=== PATIENT | female | born 1975 | race Caucasian/White ===

== ENCOUNTER → 2016-09-28 | Outpatient (CLI) | payer OTHER ==
[~2016-09-28] MED LIST: BACTRIM DS 8001 TA1 PO; BACTRIM DS 8001 TAB PO; BACTROBAN CREAM15 GM PO; BACTROBAN CREAM15 GM T; Bactroban Oint22 GM T; CEPHALEXIN500 M1 PO; CLEOCIN150 MG PO; CLINDAMYCIN HC300 MG PO; CYCLOBENZAPRINE10 MG PO; DIFLUCAN150 MG PO; FLUCONAZOLE150 MG PO; HYDROCODONE BIT1 T11 PO; LEVEMIR FLEX100 U/ML SC; LEVEMIR10 ML SC; LEVOTHYROXINE0.05 M1 PO; METFORMIN HCL1000 MG PO; Motrin,Rufen800 MG PO; NOVOLOG FLEX100 U/ML SC; NOVOLOG MI100 UNIT/2 SQ; Oscal,Oyster S500 MG PO; PERCOCET 325 MG1 TA2 PO; PROTONIX40 MG PO; SIMVASTATIN20 MG PO; ULTRAM50 MG PO; ZOFRAN4 MG PO
[2016-09-28 10:42] LABS: BILIRUBIN 2+ (NEGATIVE); BLOOD NEGATIVE (NEGATIVE); CLARITY CLOUDY (CLEAR); COLOR YELLOW (YELLOW); GLUCOSE 1+ (NEGATIVE); KETONE 1+ (NEGATIVE); LEUKO ESTERASE NEGATIVE (NEGATIVE); NITRITE NEGATIVE (NEGATIVE); PH 5.5 (5.0-9.0); PROTEIN 2+ (NEGATIVE); SPECIFIC GRAVITY >= 1.030 (1.005-1.030)
[2016-09-28 10:52] LABS: BACTERIA 1+; EPITHELIAL CELLS TNTC
[2016-09-28 11:11] LABS: ALKALINE PHOSPHATASE 69 U/L (45-117); BILIRUBIN, DIRECT 0.2 mg/dL (0.0-0.2); BILIRUBIN, TOTAL 1.2 mg/dl (0.2-1.0); BUN 10 mg/dl (7-24); CARBON DIOXIDE 28 mmol/L (21-32); CHLORIDE 101 mmol/L (98-107); CHOLESTEROL 227 mg/dL (<200); EST GLOM FILT AFRICAN AMERICAN > 60 ml/min; GLUCOSE 312 mg/dL (65-99); HDL CHOLESTEROL 41 mg/dl (40-60); LDL CHOLESTEROL 137 mg/dL (9-159); POTASSIUM 4.1 mmol/L (3.5-5.1); SGOT/AST 9 IU/L (3-35); SGPT/ALT 20 U/L (12-78); SODIUM 139 mmol/L (136-145); TOTAL PROTEIN 7.9 gm/dL (6.4-8.2); TRIGLYCERIDES 245 mg/dl (<150); VLDL CHOLESTEROL 49 mg/dL (6-40)
[2016-09-28 11:16] LABS: VITAMIN D, 25-HYDROXY 28.6 ng/mL (30-100)
[2016-09-28 11:25] LABS: HEMOGLOBIN A1c 9.1 % (4.8-5.6)
[2016-09-28 13:43] LABS: BASO % 0.2 % (0.0-1.0); EOS % 0.2 % (1.0-4.0); HEMATOCRIT 41.2 % (37.0-47.0); HEMOGLOBIN 14.8 g/dl (12.0-16.0); LYMPH % 43.3 % (27.0-41.0); MEAN CELL VOLUME 86.4 fl (81.0-99.0); MEAN CORPUSCULAR HGB CONC 35.9 g/dl (33.0-37.0); MONO # 0.3 10*3/uL (0.1-1.0); MONO % 7.1 % (3.0-9.0); NEUT # 2.3 10*3/uL (2.3-7.9); NEUT % 49.2 % (47.0-73.0); PLATELET COUNT AUTOMATED 287 10*3/uL (130-400); RED BLOOD COUNT 4.77 10*6/uL (4.10-5.10); RED CELL DISTRI WIDTH 12.4 % (0-14.5); WHITE BLOOD COUNT 4.7 10*3/uL (4.8-10.8)
[2016-09-28 14:16] LABS: ALBUMIN 4.1 gm/dl (3.1-4.5); ALKALINE PHOSPHATASE 70 U/L (45-117); BILIRUBIN, TOTAL 1.2 mg/dl (0.2-1.0); BUN 12 mg/dl (7-24); CARBON DIOXIDE 29 mmol/L (21-32); CHLORIDE 100 mmol/L (98-107); EST GLOM FILT AFRICAN AMERICAN > 60 ml/min; GLUCOSE 311 mg/dL (65-99); SGOT/AST 14 IU/L (3-35); SGPT/ALT 25 U/L (12-78); SODIUM 136 mmol/L (136-145)
[2016-09-29 08:12] LABS: HIV 1+2 AB + HIV1 P24 AG Non Reactive (Non Reactive)
== END | disposition home or self-care (01) ==
LOC: LAB 10:18
PROVIDERS: Internal Medicine
DX: E11.65 Type 2 diabetes mellitus with hyperglycemia (principal); E10.42 Type 1 diabetes mellitus with diabetic polyneuropathy; E78.5 Hyperlipidemia, unspecified; E03.9 Hypothyroidism, unspecified; E55.9 Vitamin D deficiency, unspecified

== ENCOUNTER → 2016-10-05 | Outpatient (CLI) | payer OTHER ==
[2016-10-06 18:09] LABS: HEPATITIS C QUANTITATION HCV Not Detected IU/mL (.)
== END | disposition home or self-care (01) ==
LOC: LAB 16:15
PROVIDERS: Obstetrics & Gynecology
DX: R76.8 Other specified abnormal immunological findings in serum (principal)

== ENCOUNTER 2016-11-14 08:26 | Emergency (ER) | payer OTHER | END 2016-11-14 08:49 | disposition left against medical advice (07) | LOC: ED 08:26 | DX: R30.0 Dysuria (principal); Z53.21 Procedure and treatment not carried out due to patient leaving prior to being seen by health care provider; Z98.890 Other specified postprocedural states; Z79.899 Other long term (current) drug therapy; Z91.040 Latex allergy status ==

== ENCOUNTER → 2019-01-03 | Outpatient (CLI) | payer OTHER ==
[~2019-01-03] MED LIST changes: +ATIVAN1 MG PO; +B-12500 MC1 PO; +CHLORZOXAZONE500 M2 PO; +CLINDAMYCIN150 MG PO; +DULOXETINE HCL30 MG PO; +GLUCOPHAGE1000 MG PO; +Humalog SQ; +NEURONTIN300 MG PO; +OMEPRAZOLE D/R20 MG PO; +TRESIBA FL200 UNIT/1 SQ; +TRULICITY1.5 MG/0.5 SC; +VITAMIN D35000 UNIT PO
[2019-01-03 11:45] LABS: BILIRUBIN NEGATIVE (NEGATIVE); BLOOD NEGATIVE (NEGATIVE); CLARITY SL CLOUDY (CLEAR); COLOR YELLOW (YELLOW); GLUCOSE TRACE (NEGATIVE); KETONE NEGATIVE (NEGATIVE); LEUKO ESTERASE NEGATIVE (NEGATIVE); NITRITE NEGATIVE (NEGATIVE); PH 6.5 (5.0-9.0); UROBILINOGEN 0.2 E.U./dl (0.2-1.0)
[2019-01-03 12:13] LABS: ALBUMIN 3.6 gm/dl (3.1-4.5); BILIRUBIN, DIRECT 0.1 mg/dL (0.0-0.2); BUN 17 mg/dl (7-24); CHLORIDE 104 mmol/L (98-107); CHOLESTEROL 142 mg/dL (<200); CREATININE 0.96 mg/dL (0.55-1.02); POTASSIUM 4.4 mmol/L (3.5-5.1); SGOT/AST 22 IU/L (3-35); SGPT/ALT 32 U/L (12-78); SODIUM 139 mmol/L (136-145); TOTAL PROTEIN 7.2 gm/dL (6.4-8.2); TRIGLYCERIDES 134 mg/dl (<150); VLDL CHOLESTEROL 27 mg/dL (6-40)
[2019-01-03 12:20] LABS: ALKALINE PHOSPHATASE 106 U/L (45-117); FREE T4 1.18 ng/dl (0.76-1.46); HDL CHOLESTEROL 45 mg/dl (40-60); LDL CHOLESTEROL 70 mg/dL (9-159)
[2019-01-03 12:44] LABS: BACTERIA 3+; EPITHELIAL CELLS 25-35; WBC 21-30 wbc/hpf (0-5)
== END | disposition home or self-care (01) ==
LOC: LAB 10:34
PROVIDERS: Internal Medicine
DX: E55.9 Vitamin D deficiency, unspecified (principal); E78.5 Hyperlipidemia, unspecified; E03.9 Hypothyroidism, unspecified; E11.65 Type 2 diabetes mellitus with hyperglycemia

== ENCOUNTER → 2019-06-23 | Outpatient (CLI) | payer OTHER | END | disposition home or self-care (01) | LOC: LAB 14:05 | DX: R76.8 Other specified abnormal immunological findings in serum (principal) ==

== ENCOUNTER 2019-12-05 21:35 | Inpatient (IN) | payer OTHER ==
[~2019-12-05] VITALS: Ht 157.5 cm; Wt 89.6 kg
[2019-12-05 21:45] VITALS: BP 109/57
[2019-12-05 23:02] LABS: BASO % 0.2 % (0.0-1.0); EOS % 0.1 % (1.0-4.0); HEMATOCRIT 49.3 % (37.0-47.0); LYMPH # 1.8 10*3/uL (1.3-4.4); LYMPH % 9.6 % (27.0-41.0); MEAN CELL VOLUME 90.3 fl (81.0-99.0); MEAN CORPUSCULAR HGB 30.2 pg (27.0-31.0); MEAN CORPUSCULAR HGB CONC 33.5 g/dl (33.0-37.0); MEAN PLATELET VOLUME 8.5 fl (9.6-12.3); MONO # 0.7 10*3/uL (0.1-1.0); MONO % 3.8 % (3.0-9.0); NEUT # 15.9 10*3/uL (2.3-7.9); PLATELET COUNT AUTOMATED 347 10*3/uL (130-400); RED BLOOD COUNT 5.46 10*6/uL (4.10-5.10); RED CELL DISTRI WIDTH 12.6 % (0-14.5); WHITE BLOOD COUNT 18.5 10*3/uL (4.8-10.8)
[2019-12-05 23:20] VITALS: BP 121/83
[2019-12-05 23:20] LABS: ALBUMIN 4.7 gm/dl (3.1-4.5); BUN 34 mg/dl (7-24); CHLORIDE 97 mmol/L (98-107); POTASSIUM 4.4 mmol/L (3.5-5.1); SGOT/AST 14 IU/L (3-35); SGPT/ALT 31 U/L (12-78); SODIUM 134 mmol/L (136-145); TOTAL PROTEIN 9.1 gm/dL (6.4-8.2)
[2019-12-05 23:21] LABS: TROPONIN I < 0.015 ng/ml (<0.045)
[2019-12-05 23:33] LABS: ALKALINE PHOSPHATASE 92 U/L (45-117)
[2019-12-06] VITALS (7 sets, daily range): BP systolic 95–130; BP diastolic 51–78
[2019-12-06 02:25] LABS: BILIRUBIN NEGATIVE (NEGATIVE); BLOOD TRACE-LYSED (NEGATIVE); CLARITY CLEAR (CLEAR); COLOR YELLOW (YELLOW); GLUCOSE 2+ (NEGATIVE); KETONE 3+ (NEGATIVE); LEUKO ESTERASE NEGATIVE (NEGATIVE); NITRITE NEGATIVE (NEGATIVE); UROBILINOGEN 0.2 E.U./dl (0.2-1.0)
[2019-12-06 02:30] LABS: WBC 0-2 wbc/hpf (0-5)
[2019-12-06] MEDS ORDERED: WELLBUTRIN XL300 MG PO (02:59)
[2019-12-06] MEDS ORDERED: VENLAFAXINE37.5 M1 PO (03:01)
[2019-12-06 06:18] LABS: BASO % 0.2 % (0.0-1.0); LYMPH # 1.7 10*3/uL (1.3-4.4); LYMPH % 13.1 % (27.0-41.0); MEAN CELL VOLUME 89.8 fl (81.0-99.0); MEAN CORPUSCULAR HGB CONC 33.4 g/dl (33.0-37.0); MEAN PLATELET VOLUME 8.5 fl (9.6-12.3); MONO # 0.8 10*3/uL (0.1-1.0); MONO % 6.3 % (3.0-9.0); NEUT # 10.4 10*3/uL (2.3-7.9); NEUT % 80.2 % (47.0-73.0); PLATELET COUNT AUTOMATED 329 10*3/uL (130-400); RED CELL DISTRI WIDTH 12.6 % (0-14.5); WHITE BLOOD COUNT 12.9 10*3/uL (4.8-10.8)
[2019-12-06 06:22] LABS: ALBUMIN 3.9 gm/dl (3.1-4.5); CREATININE 1.49 mg/dL (0.55-1.02); POTASSIUM 3.9 mmol/L (3.5-5.1); TOTAL PROTEIN 8.2 gm/dL (6.4-8.2)
[2019-12-06 06:28] LABS: VITAMIN D, 25-HYDROXY 32.8 ng/mL (30-100)
[2019-12-06 06:30] LABS: THYROID STIM HORMONE (HS) 1.16 uIU/ml (0.358-4.75)
[2019-12-06] MEDS ORDERED: JARDIANCE25 MG PO (08:47)
[2019-12-06 10:17] LABS: CREATININE 1.41 mg/dL (0.55-1.02); POTASSIUM 3.8 mmol/L (3.5-5.1)
[2019-12-06 15:26] LABS: CREATININE 1.34 mg/dL (0.55-1.02); POTASSIUM 3.9 mmol/L (3.5-5.1)
[2019-12-07] VITALS: BP 113/76
[2019-12-07 04:00] VITALS: BP 111/59
[2019-12-07 05:31] LABS: CREATININE 1.23 mg/dL (0.55-1.02); POTASSIUM 3.7 mmol/L (3.5-5.1)
[2019-12-07 06:13] LABS: BASO % 0.3 % (0.0-1.0); EOS % 0.2 % (1.0-4.0); LYMPH # 2.8 10*3/uL (1.3-4.4); LYMPH % 28.3 % (27.0-41.0); MEAN CELL VOLUME 90.1 fl (81.0-99.0); MEAN CORPUSCULAR HGB 30.5 pg (27.0-31.0); MEAN CORPUSCULAR HGB CONC 33.8 g/dl (33.0-37.0); MEAN PLATELET VOLUME 8.7 fl (9.6-12.3); MONO # 0.7 10*3/uL (0.1-1.0); MONO % 7.3 % (3.0-9.0); NEUT # 6.3 10*3/uL (2.3-7.9); NEUT % 63.5 % (47.0-73.0); PLATELET COUNT AUTOMATED 257 10*3/uL (130-400); RED BLOOD COUNT 4.33 10*6/uL (4.10-5.10); RED CELL DISTRI WIDTH 12.5 % (0-14.5)
[2019-12-07 08:00] VITALS: BP 101/71
[2019-12-07 12:00] VITALS: BP 107/66
[2019-12-07 16:00] VITALS: BP 122/71
[2019-12-07 20:00] VITALS: BP 136/78
[2019-12-08] VITALS: BP 111/70
[2019-12-08 06:41] LABS: BASO % 0.4 % (0.0-1.0); EOS % 0.8 % (1.0-4.0); HEMATOCRIT 32.9 % (37.0-47.0); LYMPH % 38.3 % (27.0-41.0); MEAN CELL VOLUME 89.2 fl (81.0-99.0); MEAN CORPUSCULAR HGB 30.6 pg (27.0-31.0); MEAN CORPUSCULAR HGB CONC 34.3 g/dl (33.0-37.0); MEAN PLATELET VOLUME 8.8 fl (9.6-12.3); MONO # 0.6 10*3/uL (0.1-1.0); MONO % 11.5 % (3.0-9.0); NEUT # 2.6 10*3/uL (2.3-7.9); NEUT % 48.8 % (47.0-73.0); PLATELET COUNT AUTOMATED 210 10*3/uL (130-400); RED BLOOD COUNT 3.69 10*6/uL (4.10-5.10); RED CELL DISTRI WIDTH 12.3 % (0-14.5); WHITE BLOOD COUNT 5.3 10*3/uL (4.8-10.8)
[2019-12-08 06:51] LABS: BUN 14 mg/dl (7-24); CHLORIDE 109 mmol/L (98-107); CREATININE 1.05 mg/dL (0.55-1.02); POTASSIUM 3.4 mmol/L (3.5-5.1); SODIUM 142 mmol/L (136-145)
[2019-12-08 08:04] VITALS: BP 106/68
[2019-12-08] MEDS ORDERED: MAG-AL PLUS 3030 ML PO (10:41)
[2019-12-08] MEDS ORDERED: METOCLOPRAMIDE H5 M1 PO (10:41)
== END 2019-12-08 11:24 | disposition home or self-care (01) | DRG 420 ==
LOC: ED 21:35 → EDHOLD 12-06 01:38 → ICCU 12-06 01:38 → 5E 12-07 14:50
PROVIDERS: Emergency Medicine; Family Medicine; Student in an Organized Health Care Education/Training Program; ADMIT Internal Medicine
DX: E10.10 Type 1 diabetes mellitus with ketoacidosis without coma (principal); R65.10 Systemic inflammatory response syndrome (SIRS) of non-infectious origin without acute organ dysfunction; D75.1 Secondary polycythemia; M54.12 Radiculopathy, cervical region; R80.0 Isolated proteinuria; R31.21 Asymptomatic microscopic hematuria; E03.9 Hypothyroidism, unspecified; E78.00 Pure hypercholesterolemia, unspecified; E66.01 Morbid (severe) obesity due to excess calories; E87.8 Other disorders of electrolyte and fluid balance, not elsewhere classified; E87.1 Hypo-osmolality and hyponatremia; N17.0 Acute kidney failure with tubular necrosis; Z68.36 Body mass index [BMI] 36.0-36.9, adult; Z91.040 Latex allergy status; Z98.891 History of uterine scar from previous surgery; Z83.3 Family history of diabetes mellitus; Z82.49 Family history of ischemic heart disease and other diseases of the circulatory system; Z80.0 Family history of malignant neoplasm of digestive organs; Z79.899 Other long term (current) drug therapy

== ENCOUNTER 2020-01-18 12:04 | Emergency (ER) | payer OTHER ==
[~2020-01-18] VITALS: Ht 157.4 cm; Wt 90.7 kg
[~2020-01-18 12:04] MED LIST changes: +JARDIANCE25 MG PO; +MAG-AL PLUS 3030 ML PO; +METOCLOPRAMIDE H5 M1 PO; +VENLAFAXINE37.5 M1 PO; +WELLBUTRIN XL300 MG PO
[2020-01-18 13:02] LABS: BASO % 0.4 % (0.0-1.0); EOS % 0.6 % (1.0-4.0); HEMATOCRIT 41.1 % (37.0-47.0); LYMPH # 1.9 10*3/uL (1.3-4.4); LYMPH % 40.3 % (27.0-41.0); MEAN CELL VOLUME 93.2 fl (81.0-99.0); MEAN CORPUSCULAR HGB 30.4 pg (27.0-31.0); MEAN CORPUSCULAR HGB CONC 32.6 g/dl (33.0-37.0); MEAN PLATELET VOLUME 8.3 fl (9.6-12.3); MONO # 0.6 10*3/uL (0.1-1.0); MONO % 12.1 % (3.0-9.0); NEUT # 2.2 10*3/uL (2.3-7.9); NEUT % 46.6 % (47.0-73.0); PLATELET COUNT AUTOMATED 291 10*3/uL (130-400); RED BLOOD COUNT 4.41 10*6/uL (4.10-5.10); RED CELL DISTRI WIDTH 12.8 % (0-14.5); WHITE BLOOD COUNT 4.6 10*3/uL (4.8-10.8)
[2020-01-18 13:14] LABS: CREATININE 1.23 mg/dL (0.55-1.02); POTASSIUM 4.6 mmol/L (3.5-5.1)
[2020-01-18 14:16] LABS: BILIRUBIN NEGATIVE (NEGATIVE); BLOOD NEGATIVE (NEGATIVE); CLARITY CLEAR (CLEAR); COLOR YELLOW (YELLOW); GLUCOSE 3+ (NEGATIVE); KETONE NEGATIVE (NEGATIVE); LEUKO ESTERASE NEGATIVE (NEGATIVE); NITRITE NEGATIVE (NEGATIVE); UROBILINOGEN 0.2 E.U./dl (0.2-1.0)
[2020-01-18 14:17] LABS: BACTERIA 1+; MUCOUS TRACE; RBC 0-2 rbc/hpf (0-2)
== END 2020-01-18 15:55 | disposition home or self-care (01) ==
LOC: ED 12:04
PROVIDERS: Emergency Medicine
DX: S80.211A Abrasion, right knee, initial encounter (principal); E03.9 Hypothyroidism, unspecified; E66.9 Obesity, unspecified; E78.00 Pure hypercholesterolemia, unspecified; R55 Syncope and collapse; E10.649 Type 1 diabetes mellitus with hypoglycemia without coma; Z91.040 Latex allergy status; Z79.4 Long term (current) use of insulin; Z79.899 Other long term (current) drug therapy; W18.39XA Other fall on same level, initial encounter; Y93.89 Activity, other specified; Y92.89 Other specified places as the place of occurrence of the external cause; Y99.8 Other external cause status

== ENCOUNTER → 2020-01-26 | Outpatient (CLI) | payer OTHER ==
[2020-01-26 18:59] LABS: BUN 13 mg/dl (7-24); CHLORIDE 108 mmol/L (98-107); CHOLESTEROL 190 mg/dL (<200); CREATININE 1.05 mg/dL (0.55-1.02); POTASSIUM 4.3 mmol/L (3.5-5.1); SGOT/AST 11 IU/L (3-35); SGPT/ALT 25 U/L (12-78); SODIUM 140 mmol/L (136-145); TOTAL PROTEIN 7.8 gm/dL (6.4-8.2); TRIGLYCERIDES 170 mg/dl (<150); VLDL CHOLESTEROL 34 mg/dL (6-40)
[2020-01-26 19:06] LABS: ALKALINE PHOSPHATASE 94 U/L (45-117); FREE T4 1.22 ng/dl (0.76-1.46); HDL CHOLESTEROL 50 mg/dl (40-60); LDL CHOLESTEROL 106 mg/dL (9-159); VITAMIN D, 25-HYDROXY 31.4 ng/mL (30-100)
[2020-01-28 08:07] LABS: THYROID PEROXIDASE (TPO) AB 33 IU/mL (0-34)
[2020-01-29 00:06] LABS: CREATININE,URINE 180.2 mg/dL (Not Estab.)
[2020-01-29 15:06] LABS: THYROGLOBULIN ANTIBODY <1.0 IU/mL (0.0-0.9)
[2020-02-06 14:08] LABS: GLUTAMIC ACID DECARB AB 4663.7 U/mL (0.0-5.0)
== END | disposition home or self-care (01) ==
LOC: LAB 17:57
PROVIDERS: ATTEND Internal Medicine Endocrinology, Diabetes & Metabolism
DX: E11.65 Type 2 diabetes mellitus with hyperglycemia (principal); I95.1 Orthostatic hypotension; E03.9 Hypothyroidism, unspecified

== ENCOUNTER 2020-05-07 15:04 | Emergency (ER) | payer OTHER ==
[~2020-05-07] VITALS: Wt 86.2 kg
[2020-05-07 16:38] LABS: BILIRUBIN Negative (Negative); BLOOD Negative (Negative); CLARITY Clear (Clear); COLOR Yellow (Yellow); GLUCOSE 3+ (Negative); KETONE Trace (Negative); LEUKO ESTERASE Negative (Negative); NITRITE Negative (Negative); SPECIFIC GRAVITY >= 1.030 (1.001-1.030); UROBILINOGEN 0.2 E.U./dl (0.0-1.0)
[2020-05-07 17:01] LABS: BACTERIA TRACE
[2020-05-07] MEDS ORDERED: NAPROSYN500 MG PO ×2 (17:04)
[2020-05-07] MEDS ORDERED: METHOCARBAMOL500 M1 PO ×2 (17:04)
== END 2020-05-07 17:28 | disposition home or self-care (01) ==
LOC: ED 15:04
PROVIDERS: Nurse Practitioner Family
DX: S39.012A Strain of muscle, fascia and tendon of lower back, initial encounter (principal); Z91.040 Latex allergy status; X58.XXXA Exposure to other specified factors, initial encounter; Y93.89 Activity, other specified; Y92.89 Other specified places as the place of occurrence of the external cause; Y99.8 Other external cause status

== ENCOUNTER 2020-05-29 13:10 | Emergency (ER) | payer OTHER ==
[~2020-05-29] VITALS: Ht 157.4 cm; Wt 90.7 kg
[~2020-05-29 13:10] MED LIST changes: +METHOCARBAMOL500 M1 PO; +NAPROSYN500 MG PO
[2020-05-29 21:10] LABS: BILIRUBIN Negative (Negative); BLOOD Negative (Negative); CLARITY Clear (Clear); COLOR Yellow (Yellow); GLUCOSE 3+ (Negative); KETONE Negative (Negative); LEUKO ESTERASE Negative (Negative); NITRITE Negative (Negative); SPECIFIC GRAVITY >= 1.030 (1.001-1.030); UROBILINOGEN 0.2 E.U./dl (0.0-1.0)
[2020-05-29 21:18] LABS: BACTERIA TRACE
== END 2020-05-29 21:16 | disposition home or self-care (01) ==
LOC: ED 13:10
PROVIDERS: Physician Assistant
DX: Z04.89 Encounter for examination and observation for other specified reasons (principal); E11.9 Type 2 diabetes mellitus without complications; E78.00 Pure hypercholesterolemia, unspecified; Z20.2 Contact with and (suspected) exposure to infections with a predominantly sexual mode of transmission; Z91.040 Latex allergy status; Z79.899 Other long term (current) drug therapy; Z79.4 Long term (current) use of insulin

== ENCOUNTER → 2020-10-04 | Outpatient (CLI) | payer OTHER | END | disposition home or self-care (01) | LOC: RAD 12:20 | PROVIDERS: ATTEND Nurse Practitioner Primary Care | DX: M51.34 Other intervertebral disc degeneration, thoracic region (principal); M50.323 Other cervical disc degeneration at C6-C7 level; M48.02 Spinal stenosis, cervical region; M47.813 Spondylosis without myelopathy or radiculopathy, cervicothoracic region ==

== ENCOUNTER 2021-01-08 23:08 | Inpatient (IN) | payer OTHER ==
[~2021-01-08] VITALS: Ht 157.4 cm; Wt 88.0 kg
[2021-01-08 23:26] VITALS: BP 100/57
[2021-01-08 23:56] LABS: BASO # 0.1 10*3/uL (0.0-0.1); BASO % 0.5 % (0.0-1.0); EOS % 0.3 % (1.0-4.0); LYMPH # 1.9 10*3/uL (1.3-4.4); LYMPH % 19.9 % (27.0-41.0); MEAN CELL VOLUME 86.6 fl (81.0-99.0); MEAN CORPUSCULAR HGB 29.1 pg (27.0-31.0); MEAN CORPUSCULAR HGB CONC 33.6 g/dl (33.0-37.0); MEAN PLATELET VOLUME 8.6 fl (9.6-12.3); MONO % 10.1 % (3.0-9.0); NEUT # 6.6 10*3/uL (2.3-7.9); NEUT % 68.6 % (47.0-73.0); PLATELET COUNT AUTOMATED 477 10*3/uL (130-400); RED BLOOD COUNT 4.85 10*6/uL (4.10-5.10); RED CELL DISTRI WIDTH 12.6 % (0-14.5); WHITE BLOOD COUNT 9.7 10*3/uL (4.8-10.8)
[2021-01-09 00:13] LABS: ALBUMIN 3.7 gm/dl (3.1-4.5); ALKALINE PHOSPHATASE 131 U/L (45-117); BUN 30 mg/dl (7-24); CHLORIDE 96 mmol/L (98-107); CREATININE 1.61 mg/dL (0.55-1.02); POTASSIUM 4.1 mmol/L (3.5-5.1); SGOT/AST 10 IU/L (3-35); SGPT/ALT 14 U/L (12-78); SODIUM 131 mmol/L (136-145); TOTAL PROTEIN 9.2 gm/dL (6.4-8.2)
[2021-01-09 00:15] LABS: TROPONIN I < 0.015 ng/ml (<0.045)
[2021-01-09] MEDS ORDERED: INSULIN AS100 UNIT/3 SC (06:52)
[2021-01-09] MEDS ORDERED: ROSUVASTATIN CA40 MG PO (06:53)
[2021-01-09] MEDS ORDERED: VENLAFAXINE HY150 M2 PO (06:54)
[2021-01-09] MEDS ORDERED: MIDODRINE HCL5 M1 PO (06:56)
[2021-01-09] MEDS ORDERED: FLUDROCORTISON0.1 MG PO (06:58)
[2021-01-09] MEDS ORDERED: Carafate1 GM PO (06:58)
[2021-01-09 08:08] VITALS: BP 99/55
[2021-01-09 12:54] VITALS: BP 99/55
[2021-01-09 15:54] VITALS: BP 113/66
[2021-01-09] MEDS ORDERED: CARAFATE1 GM PO (17:25)
[2021-01-09] MEDS ORDERED: OMEPRAZOLE40 MG PO (17:26)
[2021-01-09] MEDS ORDERED: HYDROXYZINE PAM25 M1 PO (17:26)
[2021-01-09 20:00] VITALS: BP 86/52
[2021-01-10] VITALS: BP 93/63
[2021-01-10 03:40] LABS: BILIRUBIN Negative (Negative); BLOOD Negative (Negative); CLARITY Clear (Clear); COLOR Yellow (Yellow); GLUCOSE 2+ (Negative); KETONE Negative (Negative); LEUKO ESTERASE Negative (Negative); NITRITE Negative (Negative); PH 5.5 (4.5-8.0); SPECIFIC GRAVITY 1.015 (1.001-1.030); UROBILINOGEN 0.2 E.U./dl (0.0-1.0)
[2021-01-10 03:51] LABS: EPITHELIAL CELLS 16-20; RBC 0-2 rbc/hpf (0-2)
[2021-01-10 06:18] LABS: BASO % 0.7 % (0.0-1.0); EOS # 0.1 10*3/uL (0.0-0.4); EOS % 1.7 % (1.0-4.0); HEMATOCRIT 32.9 % (37.0-47.0); LYMPH % 24.4 % (27.0-41.0); MEAN CELL VOLUME 89.2 fl (81.0-99.0); MEAN CORPUSCULAR HGB 29.8 pg (27.0-31.0); MEAN CORPUSCULAR HGB CONC 33.4 g/dl (33.0-37.0); MEAN PLATELET VOLUME 8.8 fl (9.6-12.3); MONO # 0.6 10*3/uL (0.1-1.0); NEUT # 2.5 10*3/uL (2.3-7.9); NEUT % 59.3 % (47.0-73.0); PLATELET COUNT AUTOMATED 343 10*3/uL (130-400); RED BLOOD COUNT 3.69 10*6/uL (4.10-5.10); RED CELL DISTRI WIDTH 12.8 % (0-14.5); WHITE BLOOD COUNT 4.2 10*3/uL (4.8-10.8)
[2021-01-10 06:35] LABS: ALBUMIN 2.6 gm/dl (3.1-4.5); CREATININE 1.19 mg/dL (0.55-1.02); POTASSIUM 4.5 mmol/L (3.5-5.1); TOTAL PROTEIN 6.7 gm/dL (6.4-8.2)
[2021-01-10 08:00] VITALS: BP 104/69; BP 67/49
[2021-01-10 12:00] VITALS: BP 118/88
[2021-01-10 16:00] VITALS: BP 112/70
[2021-01-10] MEDS ORDERED: DOXYCYCLINE100 M3 PO (16:48)
== END 2021-01-10 17:38 | disposition home or self-care (01) | DRG 951 ==
LOC: ED 23:08 → EDHOLD 01-09 05:10 → 4E 01-09 05:10
PROVIDERS: Emergency Medicine; Internal Medicine; ADMIT Internal Medicine; ATTEND Internal Medicine
PROC: 0W9K0ZZ Drainage of Upper Back, Open Approach (ICD-10-PCS; principal; 2021-01-09)
PROC: 0J9D0ZZ Drainage of Right Upper Arm Subcutaneous Tissue and Fascia, Open Approach (ICD-10-PCS; 2021-01-09)
DX: I95.1 Orthostatic hypotension (principal); L02.212 Cutaneous abscess of back [any part, except buttock and flank]; E86.0 Dehydration; E87.1 Hypo-osmolality and hyponatremia; L02.413 Cutaneous abscess of right upper limb; N17.0 Acute kidney failure with tubular necrosis; E10.65 Type 1 diabetes mellitus with hyperglycemia; E87.8 Other disorders of electrolyte and fluid balance, not elsewhere classified; E83.41 Hypermagnesemia; E03.9 Hypothyroidism, unspecified; E66.8 Other obesity; Z68.35 Body mass index [BMI] 35.0-35.9, adult; Z91.040 Latex allergy status; Z98.891 History of uterine scar from previous surgery; Z82.49 Family history of ischemic heart disease and other diseases of the circulatory system; Z83.3 Family history of diabetes mellitus; Z80.1 Family history of malignant neoplasm of trachea, bronchus and lung; Z79.899 Other long term (current) drug therapy

== ENCOUNTER → 2021-01-14 | Outpatient (CLI) | payer OTHER ==
[~2021-01-14] MED LIST changes: +CARAFATE1 GM PO; +Carafate1 GM PO; +DOXYCYCLINE100 M3 PO; +FLUDROCORTISON0.1 MG PO; +HYDROXYZINE PAM25 M1 PO; +INSULIN AS100 UNIT/3 SC; +MIDODRINE HCL5 M1 PO; +OMEPRAZOLE40 MG PO; +ROSUVASTATIN CA40 MG PO; +SEPTDS PO; +VENLAFAXINE HY150 M2 PO
== END ==
LOC: WOUNDCARE 01:09
PROVIDERS: ATTEND Surgery
DX: L02.212 Cutaneous abscess of back [any part, except buttock and flank] (principal); E10.9 Type 1 diabetes mellitus without complications; E03.9 Hypothyroidism, unspecified; M54.12 Radiculopathy, cervical region; Z98.890 Other specified postprocedural states

== ENCOUNTER → 2021-01-21 | Outpatient (CLI) | payer OTHER | LOC: WOUNDCARE 01:49 | PROVIDERS: ATTEND Surgery | DX: L02.212 Cutaneous abscess of back [any part, except buttock and flank] (principal); E10.9 Type 1 diabetes mellitus without complications; E03.9 Hypothyroidism, unspecified; M54.12 Radiculopathy, cervical region; Z98.890 Other specified postprocedural states ==

== ENCOUNTER 2021-02-09 17:15 | Emergency (ER) | payer OTHER ==
[~2021-02-09] VITALS: Ht 157.4 cm; Wt 88.0 kg
[~2021-02-09 17:15] MED LIST changes: -SEPTDS PO
[2021-02-09] MEDS ORDERED: SEPTDS PO (18:39)
[2021-02-09] MEDS ORDERED: Bactroban Oint22 GM T (19:00)
== END 2021-02-09 19:15 | disposition home or self-care (01) ==
LOC: ED 17:15
DX: L02.413 Cutaneous abscess of right upper limb (principal); E10.9 Type 1 diabetes mellitus without complications; Z98.890 Other specified postprocedural states; Z79.899 Other long term (current) drug therapy; Z79.4 Long term (current) use of insulin; Z91.040 Latex allergy status

== ENCOUNTER → 2021-02-17 | Outpatient (CLI) | payer OTHER ==
[~2021-02-17] MED LIST changes: +SEPTDS PO
== END ==
LOC: WOUNDCARE 09:53
PROVIDERS: ATTEND Nurse Practitioner
DX: T81.89XA Other complications of procedures, not elsewhere classified, initial encounter (principal); L02.212 Cutaneous abscess of back [any part, except buttock and flank]; L02.414 Cutaneous abscess of left upper limb; E10.9 Type 1 diabetes mellitus without complications; E03.9 Hypothyroidism, unspecified; M54.12 Radiculopathy, cervical region; Z98.890 Other specified postprocedural states; Z79.899 Other long term (current) drug therapy; Y83.8 Other surgical procedures as the cause of abnormal reaction of the patient, or of later complication, without mention of misadventure at the time of the procedure; Y92.238 Other place in hospital as the place of occurrence of the external cause

== ENCOUNTER → 2021-02-26 | Outpatient (CLI) | payer OTHER | LOC: WOUNDCARE 00:42 | PROVIDERS: ATTEND Nurse Practitioner | DX: T81.89XD Other complications of procedures, not elsewhere classified, subsequent encounter (principal); L02.212 Cutaneous abscess of back [any part, except buttock and flank]; L02.414 Cutaneous abscess of left upper limb; E10.9 Type 1 diabetes mellitus without complications; E03.9 Hypothyroidism, unspecified; M54.2 Cervicalgia; Z98.890 Other specified postprocedural states; Y83.8 Other surgical procedures as the cause of abnormal reaction of the patient, or of later complication, without mention of misadventure at the time of the procedure ==

== ENCOUNTER 2021-04-12 14:42 | Emergency (ER) | payer OTHER ==
[~2021-04-12] VITALS: Ht 167.6 cm; Wt 86.2 kg
[2021-04-12] MEDS ORDERED: SEPTDS PO (15:15)
[2021-04-12] MEDS ORDERED: CEPHALEXIN500 M1 PO (15:15)
== END 2021-04-12 15:26 | disposition home or self-care (01) ==
LOC: ED 14:42
DX: L02.212 Cutaneous abscess of back [any part, except buttock and flank] (principal)

== ENCOUNTER → 2021-08-13 | Outpatient (CLI) | payer OTHER | END | disposition home or self-care (01) | LOC: MAMMO 07-02 11:30 → LAB 11:00 → MAMMO 13:30 | PROVIDERS: ATTEND Nurse Practitioner Women's Health | DX: Z12.31 Encounter for screening mammogram for malignant neoplasm of breast (principal); R76.8 Other specified abnormal immunological findings in serum ==

== ENCOUNTER 2021-10-13 16:28 | Emergency (ER) | payer OTHER ==
[~2021-10-13] VITALS: Ht 157.4 cm; Wt 88.5 kg
[2021-10-13] MEDS ORDERED: PREDNISONE20 M1 PO (17:48)
== END 2021-10-13 18:01 | disposition home or self-care (01) ==
LOC: ED 16:28
DX: T78.49XA Other allergy, initial encounter (principal); L50.9 Urticaria, unspecified; Z91.040 Latex allergy status; Z79.899 Other long term (current) drug therapy; Z98.890 Other specified postprocedural states; X58.XXXA Exposure to other specified factors, initial encounter

== ENCOUNTER 2022-03-15 13:11 | Emergency (ER) | payer OTHER ==
[~2022-03-15] VITALS: Ht 157.4 cm; Wt 99.8 kg
[~2022-03-15 13:11] MED LIST changes: +PREDNISONE20 M1 PO
[2022-03-15] MEDS ORDERED: SEPTDS PO (13:43)
== END 2022-03-15 13:46 | disposition home or self-care (01) ==
LOC: ED 13:11
DX: L08.9 Local infection of the skin and subcutaneous tissue, unspecified (principal); E03.9 Hypothyroidism, unspecified; E10.9 Type 1 diabetes mellitus without complications; Z91.040 Latex allergy status; Z79.899 Other long term (current) drug therapy; Z98.890 Other specified postprocedural states

== ENCOUNTER → 2022-10-19 | Outpatient (CLI) | payer OTHER ==
[2022-10-20 06:08] LABS: HBSAG Negative (Negative); HEP B CORE AB, IGM Negative (Negative)
[2022-10-20 19:06] LABS: HEPATITIS C QUANTITATION HCV Not Detected IU/mL (.)
[2022-10-22 16:08] LABS: HEPATITIS C ANTIBODY Reactive (Non Reactive)
== END | disposition home or self-care (01) ==
LOC: LAB 15:07
PROVIDERS: ATTEND Nurse Practitioner Women's Health
DX: Z72.51 High risk heterosexual behavior (principal)

== ENCOUNTER → 2022-11-17 | Outpatient (CLI) | payer OTHER | END | disposition home or self-care (01) | LOC: MAMMO 16:56 | PROVIDERS: ATTEND Nurse Practitioner Women's Health | DX: Z12.31 Encounter for screening mammogram for malignant neoplasm of breast (principal) ==

== ENCOUNTER → 2023-03-10 | Outpatient (CLI) | payer OTHER | END | disposition home or self-care (01) | LOC: US 03-04 09:30 | PROVIDERS: ATTEND Nurse Practitioner Women's Health | DX: R16.2 Hepatomegaly with splenomegaly, not elsewhere classified (principal) ==

== ENCOUNTER → 2023-04-22 | Outpatient (CLI) | payer OTHER | END | disposition home or self-care (01) | LOC: US 00:58 | PROVIDERS: ATTEND Nurse Practitioner Women's Health | DX: R10.2 Pelvic and perineal pain (principal) ==

== ENCOUNTER → 2023-06-11 | Outpatient (CLI) | payer OTHER ==
[2023-06-11 13:47] LABS: BASO % 0.2 % (0.0-1.0); EOS # 0.1 10*3/uL (0.0-0.4); EOS % 1.2 % (1.0-4.0); HEMATOCRIT 39.1 % (37.0-47.0); LYMPH # 1.2 10*3/uL (1.3-4.4); LYMPH % 28.5 % (27.0-41.0); MEAN CELL VOLUME 92.7 fl (81.0-99.0); MEAN CORPUSCULAR HGB 30.6 pg (27.0-31.0); MEAN PLATELET VOLUME 8.4 fl (9.6-12.3); MONO # 0.5 10*3/uL (0.1-1.0); MONO % 11.5 % (3.0-9.0); NEUT # 2.4 10*3/uL (2.3-7.9); NEUT % 58.4 % (47.0-73.0); PLATELET COUNT AUTOMATED 279 10*3/uL (130-400); RED BLOOD COUNT 4.22 10*6/uL (4.10-5.10); RED CELL DISTRI WIDTH 12.9 % (0-14.5); WHITE BLOOD COUNT 4.2 10*3/uL (4.8-10.8)
[2023-06-11 13:57] LABS: URINE CREATININE RANDOM 164.08 mg/dL
[2023-06-11 13:59] LABS: BILIRUBIN Negative (Negative); BLOOD Negative (Negative); CLARITY Clear (Clear); COLOR Yellow (Yellow); GLUCOSE 3+ (Negative); KETONE Trace (Negative); LEUKO ESTERASE Negative (Negative); NITRITE Negative (Negative); SPECIFIC GRAVITY 1.025 (1.001-1.030)
[2023-06-11 14:18] LABS: POTASSIUM 3.7 mmol/L (3.4-5.1)
[2023-06-11 14:19] LABS: BACTERIA 2+; CALCIUM OXALATE CRYSTALS Trace
[2023-06-11 14:23] LABS: VITAMIN D, 25-HYDROXY 30.6 ng/mL (30-100)
== END | disposition home or self-care (01) ==
LOC: LAB 13:25
PROVIDERS: ATTEND Nurse Practitioner Family
DX: E11.22 Type 2 diabetes mellitus with diabetic chronic kidney disease (principal); E55.9 Vitamin D deficiency, unspecified; N18.30 Chronic kidney disease, stage 3 unspecified

== ENCOUNTER → 2023-10-28 | Outpatient (CLI) | payer OTHER ==
[2023-10-28 14:42] LABS: BASO % 0.4 % (0.0-1.0); EOS # 0.1 10*3/uL (0.0-0.4); EOS % 0.9 % (1.0-4.0); HEMATOCRIT 37.7 % (37.0-47.0); LYMPH # 1.1 10*3/uL (1.3-4.4); LYMPH % 19.7 % (27.0-41.0); MEAN CELL VOLUME 89.1 fl (81.0-99.0); MEAN CORPUSCULAR HGB CONC 33.7 g/dl (33.0-37.0); MEAN PLATELET VOLUME 8.4 fl (9.6-12.3); MONO # 0.4 10*3/uL (0.1-1.0); MONO % 7.9 % (3.0-9.0); NEUT # 3.9 10*3/uL (2.3-7.9); NEUT % 70.9 % (47.0-73.0); PLATELET COUNT AUTOMATED 297 10*3/uL (130-400); RED BLOOD COUNT 4.23 10*6/uL (4.10-5.10); WHITE BLOOD COUNT 5.5 10*3/uL (4.8-10.8)
[2023-10-28 15:12] LABS: POTASSIUM 5.1 mmol/L (3.4-5.1); TOTAL PROTEIN 7.7 gm/dL (6.0-8.0)
== END | disposition home or self-care (01) ==
LOC: LAB 14:17
PROVIDERS: ATTEND Internal Medicine Infectious Disease
DX: M86.171 Other acute osteomyelitis, right ankle and foot (principal); R07.9 Chest pain, unspecified

== ENCOUNTER → 2023-12-16 | Outpatient (CLI) | payer OTHER ==
[2023-12-16 12:22] LABS: BASO % 0.5 % (0.0-1.0); EOS # 0.1 10*3/uL (0.0-0.4); EOS % 1.5 % (1.0-4.0); HEMATOCRIT 37.2 % (37.0-47.0); LYMPH # 0.9 10*3/uL (1.3-4.4); LYMPH % 21.5 % (27.0-41.0); MEAN CORPUSCULAR HGB 29.8 pg (27.0-31.0); MEAN CORPUSCULAR HGB CONC 32.8 g/dl (33.0-37.0); MEAN PLATELET VOLUME 8.3 fl (9.6-12.3); MONO # 0.5 10*3/uL (0.1-1.0); NEUT # 2.6 10*3/uL (2.3-7.9); NEUT % 64.3 % (47.0-73.0); PLATELET COUNT AUTOMATED 271 10*3/uL (130-400); RED BLOOD COUNT 4.09 10*6/uL (4.10-5.10); RED CELL DISTRI WIDTH 13.3 % (0-14.5); WHITE BLOOD COUNT 4.1 10*3/uL (4.8-10.8)
[2023-12-16 12:30] LABS: BILIRUBIN Negative (Negative); BLOOD Negative (Negative); CLARITY Clear (Clear); COLOR Dark Yellow (Yellow); GLUCOSE 1+ (Negative); KETONE Trace (Negative); LEUKO ESTERASE Negative (Negative); NITRITE Negative (Negative); PH 5.5 (4.5-8.0); SPECIFIC GRAVITY >= 1.030 (1.001-1.030); UROBILINOGEN 0.2 E.U./dl (0.0-1.0)
[2023-12-16 12:51] LABS: URINE CREATININE RANDOM 243.75 mg/dL
[2023-12-16 13:08] LABS: BACTERIA 2+; CALCIUM OXALATE CRYSTALS 2+; MUCOUS 1+
[2023-12-16 13:08] LABS: POTASSIUM 3.9 mmol/L (3.4-5.1)
[2023-12-16 13:08] LABS: CHOLESTEROL 233 mg/dL (<200); LDL CHOLESTEROL 139 mg/dL (9-159); TRIGLYCERIDES 261 mg/dl (<150)
[2023-12-16 13:11] LABS: VITAMIN D, 25-HYDROXY 22.3 ng/mL (30-100)
[2023-12-17 05:06] LABS: HBSAG Negative (Negative); HEP B CORE AB, IGM Negative (Negative)
[2023-12-18 14:10] LABS: HEPATITIS C ANTIBODY Reactive (Non Reactive)
== END | disposition home or self-care (01) ==
LOC: LAB 11:54
PROVIDERS: Nurse Practitioner Primary Care; Nurse Practitioner Women's Health; ATTEND Nurse Practitioner Family
DX: E11.22 Type 2 diabetes mellitus with diabetic chronic kidney disease (principal); N18.30 Chronic kidney disease, stage 3 unspecified; E55.9 Vitamin D deficiency, unspecified

== ENCOUNTER → 2023-12-31 | Outpatient (CLI) | payer OTHER | END | disposition home or self-care (01) | LOC: ORTHO 01:40 | PROVIDERS: ATTEND Orthopaedic Surgery | DX: M79.641 Pain in right hand (principal) ==

== ENCOUNTER → 2024-01-03 | Outpatient (CLI) | payer OTHER | END | disposition home or self-care (01) | LOC: MAMMO 08:30 | PROVIDERS: ATTEND Nurse Practitioner Women's Health | DX: Z12.31 Encounter for screening mammogram for malignant neoplasm of breast (principal) ==

== ENCOUNTER 2024-07-17 15:05 | Emergency (ER) | payer OTHER ==
[~2024-07-17] VITALS: Ht 157.4 cm; Wt 68.0 kg
[2024-07-17] MEDS ORDERED: PREDNISONE20 M1 PO (16:27)
[2024-07-17] MEDS ORDERED: methylPREDNISolone sod succ 125 MG VIAL IM ONE (16:30)
== END 2024-07-17 16:59 | disposition home or self-care (01) ==
LOC: ED 15:05
DX: L25.9 Unspecified contact dermatitis, unspecified cause (principal); Z20.822 Contact with and (suspected) exposure to COVID-19; E10.65 Type 1 diabetes mellitus with hyperglycemia; E83.41 Hypermagnesemia; E87.1 Hypo-osmolality and hyponatremia; E03.9 Hypothyroidism, unspecified; R05.9 Cough, unspecified; E78.00 Pure hypercholesterolemia, unspecified; Z91.040 Latex allergy status; Z98.890 Other specified postprocedural states

== ENCOUNTER → 2025-01-02 | Outpatient (CLI) | payer MEDICAID ==
[2025-01-02 12:46] LABS: BASO # 0.0 10*3/uL (0.0-0.1); BASO % 0.2 % (0.0-1.0); EOS # 0.1 10*3/uL (0.0-0.4); EOS % 1.9 % (1.0-4.0); MEAN CELL VOLUME 91.1 fl (81.0-99.0); MEAN CORPUSCULAR HGB 31.0 pg (27.0-31.0); MEAN PLATELET VOLUME 8.5 fl (9.6-12.3); MONO # 0.4 10*3/uL (0.1-1.0); MONO % 9.2 % (3.0-9.0); NEUT # 2.7 10*3/uL (2.3-7.9); NEUT % 62.7 % (47.0-73.0); NUCLEATED RED BLOOD CELL 0.0 % (0.0-0.0); NUCLEATED RED BLOOD CELL 0.0 10*3/uL (0.0-0.0); PLATELET COUNT AUTOMATED 273 10*3/uL (130-400); RED CELL DISTRI WIDTH 12.1 % (0-14.5)
[2025-01-02 12:47] LABS: BILIRUBIN Negative (Negative); BLOOD Negative (Negative); CLARITY Cloudy (Clear); COLOR Yellow (Yellow); KETONE Trace (Negative); LEUKO ESTERASE Negative (Negative); NITRITE Negative (Negative); PH 6.5 (4.5-8.0); SPECIFIC GRAVITY >= 1.030 (1.001-1.030); UROBILINOGEN 1.0 E.U./dl (0.0-1.0)
[2025-01-02 12:57] LABS: BACTERIA 2+; EPITHELIAL CELLS 31-40; MUCOUS 1+
[2025-01-02 13:17] LABS: BUN 16.0 mg/dl (9-23)
[2025-01-02 13:18] LABS: BUN 16.0 mg/dl (9-23); LDL CHOLESTEROL 139.0 mg/dL (9-159); SGPT/ALT 18.0 U/L (5-49)
== END | disposition home or self-care (01) ==
LOC: LAB 12:05
PROVIDERS: Nurse Practitioner Family; Nurse Practitioner Primary Care; ATTEND Urology
DX: N20.0 Calculus of kidney (principal); E10.22 Type 1 diabetes mellitus with diabetic chronic kidney disease; N18.30 Chronic kidney disease, stage 3 unspecified; E10.10 Type 1 diabetes mellitus with ketoacidosis without coma; E03.9 Hypothyroidism, unspecified; E55.9 Vitamin D deficiency, unspecified

== ENCOUNTER → 2025-01-16 | Day surgery (SDC) | payer MEDICAID ==
[2025-01-15 14:26] LABS: BASO # 0.0 10*3/uL (0.0-0.1); BASO % 0.2 % (0.0-1.0); EOS # 0.0 10*3/uL (0.0-0.4); EOS % 0.8 % (1.0-4.0); MEAN CELL VOLUME 92.5 fl (81.0-99.0); MEAN CORPUSCULAR HGB 31.0 pg (27.0-31.0); MEAN PLATELET VOLUME 8.7 fl (9.6-12.3); MONO # 0.4 10*3/uL (0.1-1.0); MONO % 7.2 % (3.0-9.0); NEUT # 3.6 10*3/uL (2.3-7.9); NEUT % 71.0 % (47.0-73.0); NUCLEATED RED BLOOD CELL 0.0 % (0.0-0.0); NUCLEATED RED BLOOD CELL 0.0 10*3/uL (0.0-0.0); PLATELET COUNT AUTOMATED 275 10*3/uL (130-400); RED CELL DISTRI WIDTH 12.3 % (0-14.5)
[2025-01-15 14:30] LABS: BILIRUBIN Negative (Negative); BLOOD Negative (Negative); CLARITY Clear (Clear); COLOR Yellow (Yellow); KETONE Trace (Negative); LEUKO ESTERASE Negative (Negative); NITRITE Negative (Negative); PH 5.5 (4.5-8.0); SPECIFIC GRAVITY 1.025 (1.001-1.030); UROBILINOGEN 0.2 E.U./dl (0.0-1.0)
[2025-01-15 14:44] LABS: BACTERIA TRACE; MUCOUS TRACE; RBC 0-2 rbc/hpf (0-2)
[2025-01-15 14:55] LABS: BUN 35.0 mg/dl (9-23)
[2025-01-15 14:58] LABS: BUN 36.0 mg/dl (9-23)
[2025-01-15 15:00] LABS: VITAMIN D, 25-HYDROXY 30.9 ng/mL (30-100)
[~2025-01-16] VITALS: Ht 157.4 cm; Wt 103.4 kg
[~2025-01-16] MED LIST changes: +ACETAMINOPHEN 100 ML IV ONE; +DEXTROSE 50% 25 GM/50 ML SYR IV ONE; +DEXTROSE 50% 25 GM/50 ML VIAL IV ONE; +Lidocaine Hydrochloride 2% 5 ML SDV IV ONE; +Lidocaine Hydrochloride 30 ML VIAL ONE; +MIDAZOLAM HCL IN 0.9 % NACL/PF 50 MG/50 ML PLAST..BAG IV ONE; +Ondansetron Hydrochloride 4 MG/2 ML VIAL IV ONE; +PROPOFOL 200 MG/20 ML VIAL IV ONE; +Phenylephrine Hydrochloride 1 MG/10 ML SYRINGE IV ONE; +SODIUM CHLORIDE 0.9% 1,000 ML IV ONE; +ceFAZolin sodium/sodium chlor 20 ML IV ONE
[2025-01-16 07:02] VITALS: BP 147/55
[2025-01-16 08:24] VITALS: BP 134/77
[2025-01-16 08:39] VITALS: BP 133/60
[2025-01-16 08:54] VITALS: BP 132/65
== END | disposition home or self-care (01) ==
LOC: SDC 01-15 10:15
PROVIDERS: Nurse Practitioner Family; Nurse Practitioner Women's Health; ATTEND Orthopaedic Surgery
DX: G56.03 Carpal tunnel syndrome, bilateral upper limbs (principal)